=== PATIENT | female | born 1985 | race Caucasian/White ===

== ENCOUNTER 2017-01-05 18:40 | Emergency (ER) | payer BC ==
[~2017-01-05] VITALS: Ht 160 cm; Wt 102.5 kg
[~2017-01-05 18:40] MED LIST: BACTRIM,SEPT1 TABLET PO; CEPHALEXIN500 MG; KEFLEX500 MG PO; MACROBID100 MG PO; NAPROSYN500 MG PO; PERCOCET 5/31 TABLET PO; PYRIDIUM100 MG PO; TORADOL10 MG PO; birth control
[2017-01-05 20:22] LABS: HEMATOCRIT 43.5 % (36.0-46.0); MCH 28.5 PG (29.0-34.0); MCHC 32.9 G/DL (30.0-36.0); MCV 86.8 FL (83-99); PLATELET COUNT 173 K/uL (156-360); RED BLOOD COUNT 5.01 M/uL (3.80-5.20); WHITE BLOOD COUNT 5.6 K/uL (4.1-10.2)
[2017-01-05 20:27] LABS: CHLORIDE 104 mEq/L (99-109); POTASSIUM 3.9 mEq/L (3.7-5.4); SODIUM 136 mEq/L (136-147)
[2017-01-05 20:29] LABS: GLUCOSE 97 mg/dL (70-99)
[2017-01-05 20:30] LABS: ANION GAP 8 MEQ/L (2-14)
[2017-01-05 20:33] LABS: GFR ESTIMATE (CALCULATED) > 59 mL/min/
[2017-01-05 20:34] LABS: UREA NITROGEN (BUN) 7 mg/dL (9-23)
[2017-01-05 20:42] LABS: QUANTITATIVE HCG < 4.0 MIU/ML
[2017-01-05 21:30] LABS: ADD MIUA? YES; BILIRUBIN NEGATIVE; BLOOD NEGATIVE; COLOR YELLOW ((YELLOW)); GLUCOSE (STRIP) NEGATIVE; KETONES NEGATIVE; LEUKOCYTES NEGATIVE; NITRITE NEGATIVE; PROTEIN (STRIP) NEGATIVE; SPECIFIC GRAVITY 1.016 (1.000-1.030); UROBILINOGEN 0.2 MG/DL (0.2-1.0)
[2017-01-05 21:37] LABS: BACTERIA RARE /HPF; EPITHELIAL CELLS 2+ /HPF; MUCUS TRACE /LPF; RED BLOOD CELLS 0-5 /HPF (0-5); UCUL ADDED? NO; WHITE BLOOD CELLS 0-5 /HPF (0-5)
[2017-01-05 22:28] VITALS: BP 106/54
== END 2017-01-05 22:36 | disposition home or self-care (01) ==
LOC: EME 18:40
PROVIDERS: Physician Assistant
DX: R51 Headache (principal); F17.200 Nicotine dependence, unspecified, uncomplicated
CPT/HCPCS: 80048; 81003; 84702; 85027; 99281; 99285; J1885; J2765; J7030